=== PATIENT | female | born 1950 | race Caucasian/White ===

== ENCOUNTER 2017-04-06 05:31 | Inpatient (IN) | payer MEDICARE ==
[~2017-04-06] VITALS: Ht 160 cm; Wt 73.1 kg
[~2017-04-06 05:31] MED LIST: ASCO10004 PO; ATEN-104 PO; BIOT25005 PO; CALC1CAP8 PO; CHOL500015 PO; GABA300C10 PO; GLIP5TAB10 PO; HYDR-3237 PO; LEVO88TA4 PO; LISI5TAB7 PO; VITAMIN B 12 PO
[2017-04-06] MEDS ORDERED: BUPIVACAINE/PF-EPI 0.25% 1:200K ONE (06:07)
[2017-04-06] MEDS ORDERED: LIDOCAINE/PF 0.5% ,50ML ONE (06:08)
[2017-04-06] MEDS ORDERED: THROMBIN 5,000 UNIT VIAL TP ONE (06:08)
[2017-04-06] MEDS ORDERED: VANCOMYCIN 1,000 MG ONE (06:09)
[2017-04-06] MEDS ORDERED: EPINEPHRINE 1 MG/ML, 1ML ONE (06:09)
[2017-04-06] MEDS ORDERED: LACTATED RINGERS 1,000 ML IV SCH (06:25)
[2017-04-06 06:26] VITALS: BP 161/91
[2017-04-06] MEDS ORDERED: LIDOCAINE 1%, 2ML SQ PRN (06:30)
[2017-04-06] MEDS ORDERED: MIDAZOLAM 1 MG/ML, 2ML ONE (07:43)
[2017-04-06] MEDS ORDERED: ONDANSETRON 2MG/ML, 2ML ONE (07:43)
[2017-04-06] MEDS ORDERED: ROCURONIUM 10 MG/ML ONE (07:43)
[2017-04-06] MEDS ORDERED: DEXAMETHASONE 4 MG/ML, 1ML ONE (07:43)
[2017-04-06] MEDS ORDERED: FENTANYL PF 100 MCG/2ML ONE ×2 (07:43)
[2017-04-06] MEDS ORDERED: SUCCINYLCHOLINE 20 MG/ML, 10ML ONE (07:43)
[2017-04-06] MEDS ORDERED: HYDROmorphone 1 MG/ML, 1ML ONE ×2 (07:43)
[2017-04-06] MEDS ORDERED: CEFAZOLIN 1,000 MG ONE (07:43)
[2017-04-06] MEDS ORDERED: PROPOFOL 10 MG/ML, 20ML ONE (07:43)
[2017-04-06] MEDS ORDERED: ACETAMINOPHEN 325 MG TABLET PO PRN ×2 (08:30→09:00)
[2017-04-06] MEDS ORDERED: METOCLOPRAMIDE 5 MG/ML, 2ML IV PRN ×2 (08:30→09:00)
[2017-04-06] MEDS ORDERED: OXYcodone 5 MG/5 ML ORAL.SOL UDC PO PRN ×2 (08:30→09:00)
[2017-04-06] MEDS ORDERED: HYDROmorphone 1 MG/ML, 1ML IV PRN ×2 (08:30→09:00)
[2017-04-06] MEDS ORDERED: FENTANYL PF 100 MCG/2ML IV PRN ×2 (08:30→09:00)
[2017-04-06] MEDS ORDERED: ONDANSETRON 2MG/ML, 2ML IVPush PRN ×2 (08:30→09:00)
[2017-04-06] MEDS ORDERED: hydrALAzine 20 MG/ML, 1ML IV PRN ×2 (08:30→09:00)
[2017-04-06] MEDS ORDERED: LABETALOL 5MG/ML, 20ML IV PRN (09:00)
[2017-04-06] MEDS ORDERED: LABETALOL 5MG/ML, 20ML ONE (11:12)
[2017-04-06] MEDS: LABETALOL 5MG/ML, 20ML IV PRN ×4 (11:14→11:36)
[2017-04-06] MEDS ORDERED: hydrALAzine 20 MG/ML, 1ML ONE (11:37)
[2017-04-06] MEDS ORDERED: ACETAMINOPHEN 650 MG/20.3 ML UDC ONE (11:49)
[2017-04-06] MEDS ORDERED: OXYcodone 5 MG/5 ML ORAL.SOL UDC ONE (11:49)
[2017-04-06] MEDS ORDERED: ONDANSETRON 2MG/ML, 2ML IV PRN (13:00)
[2017-04-06] MEDS ORDERED: PROMETHAZINE 25 MG/ML, 1ML IM PRN (13:00)
[2017-04-06] MEDS ORDERED: MAGNESIUM HYDROXIDE 8%, 30ML UDC PO PRN (13:00)
[2017-04-06] MEDS ORDERED: BISACODYL 10 MG SUPP PR PRN (13:00)
[2017-04-06] MEDS ORDERED: morphine SULFATE 10 MG/ML, 1ML IV PRN (13:00)
[2017-04-06] MEDS ORDERED: HYDROcodone/APAP 10/325 MG TABLET PO PRN (13:00)
[2017-04-06] MEDS ORDERED: DIPHENHYDRAMINE 50 MG CAPSULE PO PRN (13:00)
[2017-04-06] MEDS ORDERED: DIPHENHYDRAMINE 50 MG/ML, 1ML IM PRN (13:00)
[2017-04-06] MEDS ORDERED: DIPHENHYDRAMINE 50 MG/ML, 1ML IVPush PRN (13:00)
[2017-04-06] MEDS: D5%-0.9% NACL+KCL 20MEQ 1,000 ML IV SCH (13:28)
[2017-04-06] MEDS: DEXAMETHASONE 4 MG/ML, 1ML IVPush SCH ×2 (13:29→19:13)
[2017-04-06] MEDS ORDERED: PHARMACY MAY ADJ FOR RENAL FX MC PRN (13:30)
[2017-04-06] MEDS: HYDROcodone/APAP 5/325 TABLET PO PRN ×3 (14:47→23:06)
[2017-04-06] MEDS: CEFAZOLIN PMX 1GM/50ML 50 ML IVPB SCH (15:53)
[2017-04-06 19:48] VITALS: BP 136/65
[2017-04-06] MEDS ORDERED: GABAPENTIN 300 MG CAPSULE PO SCH (21:00)
[2017-04-06] MEDS: LISINOPRIL 5 MG TABLET PO SCH (21:43)
[2017-04-06 23:48] VITALS: BP 159/77
[2017-04-07] MEDS: D5%-0.9% NACL+KCL 20MEQ 1,000 ML IV SCH ×2 (00:45→09:13)
[2017-04-07] MEDS: CEFAZOLIN PMX 1GM/50ML 50 ML IVPB SCH (00:45)
[2017-04-07 04:00] VITALS: BP 129/65
[2017-04-07] MEDS: HYDROcodone/APAP 5/325 TABLET PO PRN ×2 (05:15→09:17)
[2017-04-07] MEDS ORDERED: LEVOTHYROXINE 88 MCG TABLET PO SCH (06:00)
[2017-04-07] MEDS ORDERED: ATENOLOL 50 MG TABLET PO SCH (06:00)
[2017-04-07] MEDS ORDERED: SENNA/DOCUSATE TABLET PO SCH (09:00)
[2017-04-07] MEDS: LISINOPRIL 5 MG TABLET PO SCH (09:18)
[2017-04-07] MEDS: GABAPENTIN 300 MG CAPSULE PO SCH ×2 (09:18→14:00)
[2017-04-07 10:01] VITALS: BP 115/62
[2017-04-07] MEDS ORDERED: CEPHALEXIN 500 MG CAPSULE PO SCH (11:00)
[2017-04-07] MEDS ORDERED: METHOCARBAMOL 750 MG TABLET PO PRN (11:00)
[2017-04-07] MEDS ORDERED: MAGNESIUM HYDROXIDE 8%, 30ML UDC PO PRN (11:00)
[2017-04-07] MEDS ORDERED: DEXAMETHASONE 1 MG TABLET PO ONE (11:00)
[2017-04-07] MEDS ORDERED: CEPH-368 PO (14:29)
[2017-04-07] MEDS ORDERED: HYDR-3240 PO (14:29)
[2017-04-07] MEDS ORDERED: METH750T87 PO (14:30)
== END 2017-04-07 14:50 | disposition home or self-care (01) | DRG 472 ==
LOC: ORIP 05:31 → 4NOR 17:47 → DCLOUNGE 04-07 14:02
PROVIDERS: ADMIT Orthopaedic Surgery Orthopaedic Surgery of the Spine; ATTEND Orthopaedic Surgery Orthopaedic Surgery of the Spine
PROC: 0RG20K0 Fusion of 2 or more Cervical Vertebral Joints with Nonautologous Tissue Substitute, Anterior Approach, Anterior Column, Open Approach (ICD-10-PCS; 2017-04-06)
PROC: 0RP10AZ Removal of Interbody Fusion Device from Cervical Vertebral Joint, Open Approach (ICD-10-PCS; 2017-04-06)
PROC: 0RB30ZZ Excision of Cervical Vertebral Disc, Open Approach (ICD-10-PCS; principal; 2017-04-06 07:30)
DX: M48.02 Spinal stenosis, cervical region (principal); G95.9 Disease of spinal cord, unspecified; M54.10 Radiculopathy, site unspecified
CPT/HCPCS: 36415; 72040; 82962; 86850; 86900; 95938; 95941; C1713; J0171; J0690; J1100; J1170; J2001; J2250; J2405; J2704; J3010; J3370; C1762; J0330; J0360; J1200; J2270; J3480; J7120